=== PATIENT | female | born 1965 ===

== ENCOUNTER 2018-03-22 16:11 | Emergency (ER) | payer MEDICAID ==
[2018-03-22 16:27] VITALS: RESP 20; TEMP 98.2; O2SAT 97
--- NOTE | 2018-03-22 16:37 | ED PDOC ---
Syncope/Near Syncope/Dizziness Time Seen by Provider: 03/22/18 16:17 Chief Complaint (Nursing): Syncope Chief Complaint (Provider): Syncope History Per: Patient, EMS History/Exam Limitations: no limitations Onset/Duration Of Symptoms: Sudden Onset Current Symptoms Are (Timing): Better Additional Complaint(s): 52 year old female with pmHx of asthma and chronic headaches, arrives to ED via EMS for an evaluation of a syncopal episode while getting a pedicure. Patient states she felt lightheaded prior to event but denies chest pain, palpitations, nausea, or vomiting. No seizures reported by witnesses. PCP: none provided Past Medical History Reviewed: Historical Data, Nursing Documentation, Vital Signs Vital Signs: Last Vital Signs Temp 98.2 F 03/22/18 16:26 Pulse 81 03/22/18 16:26 Resp 20 03/22/18 16:26 BP 101/64 03/22/18 16:26 Pulse Ox 97 03/22/18 16:26 - Medical History PMH: Asthma, Migraine - Family History Family History: States: Unknown Family Hx - Allergies Allergies/Adverse Reactions: Allergies Allergy/AdvReac Type Severity Reaction Status Date / Time cephalexin [From Keflex] Allergy RASH Verified 03/22/18 16:19 Review of Systems ROS Statement: Except As Marked, All Systems Reviewed And Found Negative Cardiovascular: Negative for: Chest Pain, Palpitations Gastrointestinal: Negative for: Nausea, Vomiting Neurological: Positive for: Headache (chronic), Dizziness (lightheaded). Negative for: Seizures Physical Exam - Reviewed Nursing Documentation Reviewed: Yes Vital Signs Reviewed: Yes - Physical Exam Appears: Positive for: Well, Non-toxic, No Acute Distress Head Exam: Positive for: ATRAUMATIC, NORMAL INSPECTION, NORMOCEPHALIC Skin: Positive for: Normal Color Eye Exam: Positive for: Normal appearance, EOMI, PERRL ENT: Positive for: Normal ENT Inspection. Negative for: Pharyngeal Erythema Neck: Positive for: Normal, Supple Cardiovascular/Chest: Positive for: Regular Rate, Rhythm, Chest Non Tender Respiratory: Positive for: Normal Breath Sounds. Negative for: Respiratory Distress Gastrointestinal/Abdominal: Positive for: Normal Exam Back: Positive for: Normal Inspection Extremity: Positive for: Normal ROM (upper/lower) Neurologic/Psych: Positive for: Alert, stonework supervisor II-XII (grossly intact), Oriented (x3). Negative for: Motor/Sensory Deficits, Aphasia - ECG O2 Sat by Pulse Oximetry: 97 (RA) Pulse Ox Interpretation: Normal Medical Decision Making Medical Decision Making: Initial Impression: Syncope Initial Plan: Rule out cardiac vs. neurological vs. metabolic cause. Will obtain CT head, EKG, and labs. Scribe Attestation: Documented by Milla Solano, acting as a scribe for Eben Le MD Provider Scribe Attestation: All medical record entries made by the Scribe were at my direction and person ally dictated by me. I have reviewed the chart and agree that the record accurately reflects my personal performance of the history, physical exam, medical decision making, and the department course for this patient. I have also personally directed, reviewed, and agree with the discharge instructions and disposition. Disposition - Clinical Impression Clinical Impression: Syncope - Patient ED Disposition Is Patient to be Admitted: Transfer of Care - Disposition Disposition: Transfer of Care Disposition Time: 16:52 Condition: FAIR Forms: [employer] (Samoan) Patient Signed Over To: Alex Waggoner
--- NOTE | 2018-03-22 16:55 | ED PDOC ---
- Laboratory Results Result Diagrams: 03/22/18 16:52 03/22/18 16:52 Lab Results: bun 38 - ECG O2 Sat by Pulse Oximetry: 97 (RA) Pulse Ox Interpretation: Normal - CT Scan/US head Other Rad Studies (CT/US): Read By Radiologist Other Rad Interpretation: no acute - Progress ED Course And Treament: 1655: Stable. Took over care from Dr. Le. Juan Antonio on labs, imaging. Had syncope episode. 0: Stable. Pt. not dizzy. Refusing to stay for further evaluation. Is aware of possible or decreased functioning from syncope or the cause of it. Pt. has capacity to make decisions and is aaox3. Will go ama. Family at bedside and agrees with pt. decision. Disposition Counseled Patient/Family Regarding: Studies Performed, Diagnosis - Clinical Impression Clinical Impression: Syncope - POA Present On Arrival: None - Disposition Referrals: [facility] [place] [Outside] - 03/23/18 Disposition: AGAINST MEDICAL ADVICE Disposition Time: 19:00 Condition: FAIR Additional Instructions: You are refusing to be admitted or get further evaluation for your passing out episode. You can or have decreased functioning from it or the cause of it. Come back right away for admission. Instructions: Syncope (Fainting)
[2018-03-22 16:57] LABS: BASO % 0.6 % (0.0-2.0); EOS # 0.5 K/uL (0.0-0.7); EOS % 8.1 % (0.0-4.0); HEMOGLOBIN 13.8 g/dL (12.0-16.0); LYMPH # 1.7 K/uL (1.0-4.3); LYMPH % 26.7 % (20.0-40.0); MEAN CELL VOLUME 94.5 fl (81.0-99.0); MEAN CORPUSCULAR HEMOGLOBIN 32.3 pg (27.0-31.0); MEAN CORPUSCULAR HGB CONC 34.2 g/dL (33.0-37.0); MEAN PLATELET VOLUME 10.2 fl (7.2-11.7); MONO # 0.7 K/uL (0.0-0.8); MONO % 10.2 % (0.0-10.0); NEUT # 3.5 K/uL (1.8-7.0); NEUT % 54.4 % (50.0-75.0); NRBC % 0.1 % (0.0-0.0); RBC 4.26 Mil/uL (3.80-5.20); WHITE BLOOD COUNT 6.5 K/uL (4.8-10.8)
[2018-03-22 17:05] LABS: ALB/GLOB RATIO 1.3 (1.0-2.1); ALBUMIN 4.3 g/dL (3.5-5.0); ALT/SGPT 23 U/L (9-52); AST/SGOT 23 U/L (14-36); BLOOD UREA NITROGEN 38 mg/dl (7-17); CALCIUM 9.4 mg/dL (8.4-10.2); GFR NON-AFRICAN AMERICAN > 60
[2018-03-22] MEDS ORDERED: Sodium Chloride 0.9% 1,000 ML IV STA (17:20)
--- NOTE | 2018-03-22 17:57 | CT ---
Date of service: 03/22/2018 PROCEDURE: CT HEAD WITHOUT CONTRAST. HISTORY: r/o bleed COMPARISON: None available. TECHNIQUE: Axial computed tomography images were obtained through the head/brain without intravenous contrast. Radiation dose: Total exam DLP = 712.69 mGy-cm. This CT exam was performed using one or more of the following dose reduction techniques: Automated exposure control, adjustment of the mA and/or kV according to patient size, and/or use of iterative reconstruction technique. FINDINGS: HEMORRHAGE: No intracranial hemorrhage. BRAIN: Normal felix-white matter differentiation and density are appreciated throughout the cerebrum and cerebellum with the brainstem appearing unremarkable as well. There is no mass effect. There is no suspicious extra-axial fluid collection and the midline brain anatomy appears diffusely unremarkable. Dense calcification of the anterior falx is appreciated. VENTRICLES: Unremarkable. No hydrocephalus. CALVARIUM: Unremarkable. PARANASAL SINUSES: Unremarkable as visualized. No significant inflammatory changes. MASTOID AIR CELLS: Unremarkable as visualized. No inflammatory changes. OTHER FINDINGS: None. IMPRESSION: Normal CT of the Head.
[2018-03-22 18:11] VITALS: BP 115/73; PULSE 75
--- NOTE | 2018-03-23 07:27 | CARD ---
APPROVED REPORT Date of service: 03/22/2018 EKG Measurement Heart [id number] <Conclusion> Normal sinus rhythm Possible Left atrial enlargement Left axis deviation Nonspecific T wave abnormality Abnormal ECG
== END 2018-03-22 19:16 | disposition left against medical advice (07) ==
LOC: H.ER 16:11
DX: R55 Syncope and collapse (principal)
CPT/HCPCS: 70450; 80053; 81025; 84484; 85025; 93005; 96360; 99285; J7030